=== PATIENT | female | born 1975 | race Caucasian/White ===

== ENCOUNTER 2018-03-31 09:57 | Emergency (ER) | payer OTHER ==
[2018-03-31] MEDS: IBUPROFEN 800 MG TAB PO (10:41)
== END 2018-03-31 12:54 | disposition home or self-care (01) ==
LOC: FTE 09:57
DX: S49.91XA Unspecified injury of right shoulder and upper arm, initial encounter (principal); S89.92XA Unspecified injury of left lower leg, initial encounter; R10.2 Pelvic and perineal pain; W01.0XXA Fall on same level from slipping, tripping and stumbling without subsequent striking against object, initial encounter; Y92.512 Supermarket, store or market as the place of occurrence of the external cause
CPT/HCPCS: 72170; 73030-RT; 73110-RT; 73510; 73562; 81025; 99284-25